=== PATIENT | female | born 1975 | race Caucasian/White ===

== ENCOUNTER 2021-01-22 08:24 | Inpatient (IN) | payer OTHER ==
[~2021-01-22] VITALS: Ht 165.1 cm; Wt 81.6 kg
--- NOTE | ~2021-01-22 | OP ---
[address] [address] OPERATIVE REPORT Name: RENNY MARTINEZ Room: [address] M.R.#: [id number] Admission: 01/22/21 Attend Phys: Sd Johnson Discharge: Date of : 77 Report #: [id number] THIS REPORT FOR: cc: FAM - No family physician/PCP FAM - No family physician/PCP Per Germain DO ~ DOC #: [id number] Ady Kothari DO DATE OF SURGERY: 01/24/2021 PREOPERATIVE DIAGNOSIS: Acute cholecystitis with cholelithiasis. POSTOPERATIVE DIAGNOSIS: Acute cholecystitis with cholelithiasis. SURGEON: Per Germain DO CO-SURGEON: Ady Kothari DO, PGY-4 CAN CRIMPER: CIRILO Hooks. PROCEDURE PERFORMED: Laparoscopic cholecystectomy with mean fluorescence imaging. ANESTHESIA: General and regional. ESTIMATED BLOOD LOSS: 20 mL SPECIMEN: Gallbladder. COMPLICATIONS: None. FINDINGS: Multiple gallstones within the gallbladder with an edematous wall. HISTORY OF PRESENT ILLNESS: The patient is a 46-year-old female who presented to [facility] with increasing right upper quadrant pain with radiation to her back, with previous episodes similar to this in the past. She did have some associated nausea and vomiting and issues with p.o. intake. Workup revealed acute cholecystitis with multiple gallstones within the gallbladder. We discussed laparoscopic cholecystectomy. Risks, benefits and alternatives discussed at length and she agreed to proceed with surgery after consent was obtained. DESCRIPTION OF PROCEDURE: The patient was taken to the operating room and placed in the supine position. Anesthesia applied bilateral lower extremity and a safety belt placed across the patient's waist. General endotracheal anesthesia was administered by the anesthesia team without any complication. [address] [place] [address] OPERATIVE REPORT Name: RENNY MARTINEZ Room: [address] IN [facility]#: [id number] Admission: 01/22/21 Attend Phys: Sd Johsnon Discharge: Date of : 77 Report #: [id number] Ancef given for surgical prophylaxis. The patient's abdomen was prepped and draped in the standard sterile fashion. Bilateral TAP blocks were performed by the anesthesia team. A timeout was performed confirming the patient, procedure. An 11 blade scalpel used to make an incision just above the umbilicus in a vertical fashion. Electrocautery used for hemostasis and dissect down to the level of fascia. Once the fascia was encountered, it was scored with electrocautery and grasped between 2 Kochers. Hemostat was used to bluntly into the peritoneum. Two stitches of 0 Vicryl were placed on either side of the fascia. A 5 mm Saturnino trocar was inserted into the abdomen. Insufflation was initiated. Abdominal contents were inspected. The gallbladder could be seen in the right upper quadrant and appeared to be very edematous. We placed another 5 mm trocar in subxiphoid and two in the right upper quadrant. The gallbladder was grasped and elevated. We elected to aspirate the gallbladder only got 10 mL of bile out of the gallbladder. The rest of the gallbladder was full of stones. Gallbladder was elevated. Attention was turned towards isolating cystic artery and cystic duct. Using combination of electrocautery and [place] dissection, we were able to isolate the cystic duct laterally, cystic artery medially. The artery was clipped twice with Weck clips, 1 proximal and 1 distal. Two clips were placed on the proximal cystic duct and one on the distal cystic duct with Weck clips. Both structures were cut. The gallbladder was then dissected off the bed of the liver using hook electrocautery. The gallbladder was placed in laparoscopic EndoCatch bag. The right upper quadrant was irrigated and all fluid was suctioned out. Hemostasis was ensured with electrocautery. At this point, insufflation was let down. All trocars were removed under direct visualization. The gallbladder was too large to be removed from the supraumbilical trocar site. Therefore, we had to use heavy Mayos to incise the fascia more cephalad to allow for extraction of the gallbladder. The gallbladder was removed. Supraumbilical fascia was reapproximated with stitches of 0 Vicryl in a [id number] fashion. Subcutaneous tissue reapproximated with 3-0 Vicryl. All skin incisions reapproximated with 4-0 Monocryl in subcuticular fashion. Sterile skin glue was applied to all incisions. All needle, instrument and sponge counts were correct x2 at the end of the case. The patient was transferred to PACU in stable condition. Per Germain DO TT/ROGERI By: [id number] Germain DO /nt
[2021-01-22 08:31] VITALS: BP 162/91
[2021-01-22 08:44] LABS: URINE BILIRUBIN NEGATIVE (Negative); URINE BLOOD NEGATIVE (Negative); URINE CLARITY CLEAR; URINE COLOR YELLOW; URINE GLUCOSE-RANDOM NEGATIVE (Negative); URINE KETONES NEGATIVE (Negative); URINE LEUKOCYTES NEGATIVE (Negative); URINE NITRITE NEGATIVE (Negative); URINE PROTEIN NEGATIVE (Negative); URINE UROBILINOGEN 0.2 E.U./dl (0.2-1.0)
[2021-01-22 08:54] LABS: ABSOLUTE BASOPHILS 0.1 thou/uL (0.0-0.2); ABSOLUTE EOSINOPHILS 0.2 thou/uL (0.0-0.7); ABSOLUTE LYMPHOCYTES 3.3 thou/uL (0.8-5.3); ABSOLUTE MONOCYTES 0.9 thou/uL (0.0-1.2); BASOPHILS 1.3 %; EOSINOPHILS 1.6 %; HEMATOCRIT 43.2 % (37.0-47.0); HEMOGLOBIN 14.4 gm/dL (12.0-15.0); LYMPHOCYTES 28.8 %; MCH 31.7 pg (26.0-34.0); MCHC 33.4 g/dL (28.0-37.0); MONOCYTES 7.6 %; NUCLEATED RBCS 0 /100WBC; PLATELET COUNT* 392 thou/uL (150-400); POLYS 60.7 %; RBC 4.55 mil/uL (4.20-5.00); RDW-CV 13.6 % (10.5-14.5); WBC 11.5 thou/uL (4.0-11.0)
[2021-01-22 09:02] LABS: CALCIUM 10.1 mg/dL (8.5-10.1); CREATININE 0.7 mg/dL (0.6-1.3); POTASSIUM 3.6 mmol/L (3.5-5.1)
[2021-01-22 09:07] LABS: ALBUMIN 3.5 g/dL (3.4-5.0); TOTAL BILIRUBIN 0.3 mg/dL (<0.1-1.0); TOTAL PROTEIN 8.2 g/dL (6.4-8.2)
[2021-01-22 12:57] VITALS: BP 156/80
[2021-01-22 13:00] VITALS: BP 152/91
[2021-01-22 16:43] VITALS: BP 145/83
[2021-01-22 20:48] VITALS: BP 143/81
[2021-01-23 04:37] LABS: ABSOLUTE BASOPHILS 0.1 thou/uL (0.0-0.2); ABSOLUTE EOSINOPHILS 0.2 thou/uL (0.0-0.7); ABSOLUTE LYMPHOCYTES 2.6 thou/uL (0.8-5.3); ABSOLUTE MONOCYTES 0.6 thou/uL (0.0-1.2); ABSOLUTE NEUTROPHILS 5.9 thou/uL (1.6-8.1); BASOPHILS 1.1 %; EOSINOPHILS 1.9 %; HEMATOCRIT 41.5 % (37.0-47.0); LYMPHOCYTES 27.6 %; MCH 32.3 pg (26.0-34.0); MCHC 33.7 g/dL (28.0-37.0); MONOCYTES 6.2 %; NUCLEATED RBCS 0 /100WBC; PLATELET COUNT* 319 thou/uL (150-400); POLYS 63.2 %; RBC 4.32 mil/uL (4.20-5.00); RDW-CV 13.6 % (10.5-14.5); WBC 9.3 thou/uL (4.0-11.0)
[2021-01-23 04:50] LABS: CALCIUM 8.7 mg/dL (8.5-10.1); CREATININE 0.8 mg/dL (0.6-1.3); DIRECT BILIRUBIN 0.1 mg/dL (<0.1-0.3); POTASSIUM 3.7 mmol/L (3.5-5.1); TOTAL BILIRUBIN 0.5 mg/dL (<0.1-1.0); TOTAL PROTEIN 7.5 g/dL (6.4-8.2)
[2021-01-23 08:03] VITALS: BP 99/61
[2021-01-23 16:00] VITALS: BP 110/59
[2021-01-23 20:00] VITALS: BP 112/68
[2021-01-24 00:56] VITALS: BP 112/68
[2021-01-24 03:47] LABS: HEMATOCRIT 40.5 % (37.0-47.0); HEMOGLOBIN 13.3 gm/dL (12.0-15.0); MCH 32.1 pg (26.0-34.0); MCHC 32.9 g/dL (28.0-37.0); MCV 97.5 fL (80.0-100.0); MPV 8.3 fl. (7.2-11.1); RBC 4.15 mil/uL (4.20-5.00); RDW-CV 13.5 % (10.5-14.5); WBC 6.9 thou/uL (4.0-11.0)
[2021-01-24 04:07] LABS: ALBUMIN 2.8 g/dL (3.4-5.0); CALCIUM 8.5 mg/dL (8.5-10.1); CREATININE 0.7 mg/dL (0.6-1.3); POTASSIUM 4.1 mmol/L (3.5-5.1); TOTAL BILIRUBIN 0.3 mg/dL (<0.1-1.0)
[2021-01-24 08:13] VITALS: BP 105/52
[2021-01-24] MEDS ORDERED: AUGMENTIN 875-1 EACH PO (15:54)
[2021-01-24 16:10] VITALS: BP 105/52
[2021-01-24 16:55] VITALS: BP 105/52
== END 2021-01-24 16:35 | disposition home or self-care (01) | DRG 419 ==
LOC: M.ERS 08:24 → M.TBA-ER 10:26 → M.ORTHSURG 13:09
PROVIDERS: Emergency Medicine; Surgery; ADMIT Internal Medicine; ATTEND Internal Medicine
PROC: 0FT44ZZ Resection of Gallbladder, Percutaneous Endoscopic Approach (ICD-10-PCS; principal; 2021-01-24)
DX: K80.00 Calculus of gallbladder with acute cholecystitis without obstruction (principal); R74.01 Elevation of levels of liver transaminase levels; D72.829 Elevated white blood cell count, unspecified; Z20.822 Contact with and (suspected) exposure to COVID-19; Z71.6 Tobacco abuse counseling

== ENCOUNTER 2021-04-14 19:52 | Emergency (ER) | payer OTHER ==
[~2021-04-14] VITALS: Ht 165.1 cm; Wt 81.7 kg
[~2021-04-14 19:52] MED LIST: AUGMENTIN 875-1 EACH PO
[2021-04-14 20:48] LABS: URINE BILIRUBIN NEGATIVE (Negative); URINE BLOOD TRACE (Negative); URINE CLARITY CLEAR; URINE COLOR YELLOW; URINE GLUCOSE-RANDOM NEGATIVE (Negative); URINE KETONES TRACE (Negative); URINE LEUKOCYTES-REFLEX NEGATIVE (Negative); URINE NITRITE-REFLEX NEGATIVE (Negative); URINE PROTEIN 1+ (Negative); URINE UROBILINOGEN 0.2 E.U./dl (0.2-1.0)
[2021-04-14 21:24] LABS: ABSOLUTE BASOPHILS 0.1 thou/uL (0.0-0.2); ABSOLUTE LYMPHOCYTES 1.6 thou/uL (0.8-5.3); ABSOLUTE MONOCYTES 0.4 thou/uL (0.0-1.2); ABSOLUTE NEUTROPHILS 11.5 thou/uL (1.6-8.1); BASOPHILS 0.8 %; EOSINOPHILS 0.2 %; HEMATOCRIT 42.9 % (37.0-47.0); HEMOGLOBIN 14.9 gm/dL (12.0-15.0); LYMPHOCYTES 11.6 %; MCHC 34.8 g/dL (28.0-37.0); NUCLEATED RBCS 0 /100WBC; PLATELET COUNT* 382 thou/uL (150-400); POLYS 84.4 %; RBC 4.51 mil/uL (4.20-5.00); RDW-CV 12.8 % (10.5-14.5); WBC 13.6 thou/uL (4.0-11.0)
[2021-04-14 21:33] LABS: CALCIUM 9.1 mg/dL (8.5-10.1); CREATININE 0.7 mg/dL (0.6-1.3); POTASSIUM 3.6 mmol/L (3.5-5.1)
[2021-04-14 21:43] LABS: ALBUMIN 3.7 g/dL (3.4-5.0); MAGNESIUM 1.6 mg/dL (1.8-2.4); TOTAL BILIRUBIN 0.4 mg/dL (<0.1-1.0); TOTAL PROTEIN 8.5 g/dL (6.4-8.2)
[2021-04-14 23:48] LABS: AMP/METHAMP POSITIVE (Negative); BARBITURATES Negative (Negative); BENZODIAZEPINES Negative (Negative); COCAINE Negative (Negative); METHADONE Negative (Negative); OPIATES Negative (Negative); PCP Negative (Negative); THC Negative (Negative)
[2021-04-15] MEDS ORDERED: TRAMADOL 50 MG50 MG PO ×2 (00:22→00:23)
[2021-04-15] MEDS ORDERED: ZOFRAN ODT4 MG PO ×2 (00:22→00:23)
[2021-04-15 00:43] VITALS: BP 187/98
== END 2021-04-15 00:43 | disposition home or self-care (01) ==
LOC: M.ERS 19:52
PROVIDERS: Emergency Medicine
DX: F15.10 Other stimulant abuse, uncomplicated (principal); Z20.822 Contact with and (suspected) exposure to COVID-19; R19.7 Diarrhea, unspecified; F17.210 Nicotine dependence, cigarettes, uncomplicated; Z98.51 Tubal ligation status; Z90.49 Acquired absence of other specified parts of digestive tract; Z79.899 Other long term (current) drug therapy